=== PATIENT | female | born 1940 ===

== ENCOUNTER 2017-08-10 10:26 | Emergency (ER) | payer OTHER ==
[~2017-08-10] VITALS: Ht 157.5 cm; Wt 68.0 kg
[~2017-08-10 10:26] MED LIST: CIPRO750 MG PO; CLONAZEPAM1 MG PO; DOCUSATE SODIU100 MG PO; METHYLPRED4 MG/DOSE- PO; NEURONTIN PO; PERCOCET 5/3251 TAB PO
== END 2017-08-10 16:52 | disposition home or self-care (01) ==
LOC: ER 10:26
DX: R10.814 Left lower quadrant abdominal tenderness (principal)